=== PATIENT | male | born 1955 | race Caucasian/White ===

== ENCOUNTER → 2017-11-09 09:34 | Outpatient (CLI) | payer BC, SELFPAY ==
[2017-11-09 11:06] LABS: AST(SGOT) 21 U/L (15-37); Alanine Aminotransfer ALT/SGPT 23 U/L (16-61); Albumin, Serum 3.7 g/dL (3.2-5.0); Alkaline Phosphatase 99 U/L (45-117); Cholesterol 112 mg/dL (200); High Density Lipoprotein 51 mg/dL; Protein, Total 7.7 g/dL (6.4-8.2); Triglycerides 62 mg/dL; Very Low Density Lipoprotein 12 mg/dL (5-40)
== END ==
PROVIDERS: Family Provider Family Medicine; PCP Family Medicine; Visit Provider Internal Medicine Cardiovascular Disease
DX: I21.4 Non-ST elevation (NSTEMI) myocardial infarction (principal); E78.00 Pure hypercholesterolemia, unspecified
CPT/HCPCS: 36415; 80061; 80076

== ENCOUNTER → 2018-05-07 07:54 | Outpatient (CLI) | payer OTHER, SELFPAY ==
[2018-05-07 08:55] LABS: AST(SGOT) 25 U/L (15-37); Alanine Aminotransfer ALT/SGPT 27 U/L (16-61); Albumin, Serum 3.6 g/dL (3.2-5.0); Alkaline Phosphatase 117 U/L (45-117); Bilirubin, Direct 0.21 mg/dL (0.00-0.30); Cholesterol 104 mg/dL (200); Globulin 3.9 g/dL (2.2-4.2); High Density Lipoprotein 48 mg/dL; Protein, Total 7.5 g/dL (6.4-8.2); Triglycerides 55 mg/dL; Very Low Density Lipoprotein 11 mg/dL (5-40)
== END ==
PROVIDERS: Family Provider Family Medicine; PCP Family Medicine; Visit Provider Internal Medicine Cardiovascular Disease
DX: I25.10 Atherosclerotic heart disease of native coronary artery without angina pectoris (principal); Z79.899 Other long term (current) drug therapy; Z95.5 Presence of coronary angioplasty implant and graft
CPT/HCPCS: 36415; 80061; 80076

== ENCOUNTER → 2019-10-24 08:24 | Outpatient (CLI) | payer BC, SELFPAY ==
[2018-11-04 10:32] VITALS: BMI 27.3
[2019-10-24 09:34] LABS: AST(SGOT) 24 U/L (15-37); Alanine Aminotransfer ALT/SGPT 30 U/L (16-61); Albumin, Serum 3.7 g/dL (3.2-5.0); Alkaline Phosphatase 83 U/L (45-117); Bilirubin, Direct 0.18 mg/dL (0.00-0.30); Cholesterol 116 mg/dL (200); Globulin 3.9 g/dL (2.2-4.2); High Density Lipoprotein 53 mg/dL; Protein, Total 7.6 g/dL (6.4-8.2); Triglycerides 57 mg/dL; Very Low Density Lipoprotein 11 mg/dL (5-40)
== END ==
PROVIDERS: PCP Family Medicine; Referring Provider Internal Medicine Cardiovascular Disease; Visit Provider Internal Medicine Cardiovascular Disease
DX: E78.00 Pure hypercholesterolemia, unspecified (principal); E78.5 Hyperlipidemia, unspecified; I25.2 Old myocardial infarction; I25.10 Atherosclerotic heart disease of native coronary artery without angina pectoris; Z95.5 Presence of coronary angioplasty implant and graft; F17.200 Nicotine dependence, unspecified, uncomplicated
CPT/HCPCS: 36415; 80061; 80076

== ENCOUNTER → 2019-11-15 06:42 | Outpatient (CLI) | payer BC, SELFPAY ==
[2019-11-03 08:52] VITALS: BMI 26.9
--- NOTE | 2019-11-15 16:05 | STRESSREP ---
Stress Test Report Exercise myocardial perfusion stress test. 64-year-old man with a history of previous non-ST elevation myocardial infarction involving the inferior wall. Stress protocol: Resting EKG demonstrates normal sinus rhythm with a rate of 60 bpm normal intervals are noted resting blood pressures 138/66 mmHg. The patient exercised according to regular Aguilar protocol for a total duration of 9 minutes and 31 seconds. The maximum heart rate attained was 133 bpm which was 85% of maximum predicted heart rate the maximum workload was 10.9 metabolic equivalents. At rest there were no ST or T wave changes noted suggest ischemia peak exercise upsloping ST changes only were noted with no meet the criteria for ischemia. The test was terminated due to leg fatigue. The resting blood pressure is 138/66 with a peak blood pressure 168/70 mmHg. Myocardial perfusion protocol. 14.1 mCi of technetium 99m sestamibi was injected at rest. The patient exercised according to regular Aguilar protocol. At peak exercise 44.3 mCi of technetium 99m sestamibi was injected stress images were obtained stress and rest images were reconstructed and compared in the short axis vertical and horizontal long axis. Gated images were also obtained Perfusion SPECT analysis: Review of the stress images demonstrate normal uptake of tracer noted in the septum anterior wall and lateral wall. There is a small to medium portion of the inferior wall in the mid zone with reduced perfusion. The resting images demonstrate improved perfusion suggestive of mid inferior ischemia. Gated SPECT analysis: The gated ejection fraction is noted to be 70%. Conclusion: Abnormal exercise myocardial perfusion stress test at a high workload with mid inferior ischemia. Preserved ejection fraction.
== END ==
PROVIDERS: PCP Family Medicine; Referring Provider Internal Medicine Cardiovascular Disease; Visit Provider Internal Medicine Cardiovascular Disease
DX: I25.10 Atherosclerotic heart disease of native coronary artery without angina pectoris (principal)
CPT/HCPCS: 78452; 93017; A9500; A4216

== ENCOUNTER → 2020-04-10 12:10 | Outpatient (CLI) | payer MEDICARE, SELFPAY ==
[2020-04-10 09:49] VITALS: BMI 26.9
--- NOTE | 2020-04-10 12:16 | RAD_ITS ---
STUDY: X-RAY CHEST REASON FOR EXAM: Male, 64 years old. ABNORMAL STRESS TEST, NO HEART COMPLAINTS, HX STENTS X 3 YRS TECHNIQUE: PA and lateral views of the chest. COMPARISON: Comparison is made with prior study dated 03/06/2017. FINDINGS: Hyperinflation. There is no demonstrated pleural abnormality. Stable scarring at the lung apices. Normal mediastinum and tara. There is prominence of the pulmonary hilar arteries without peripheral pulmonary vascular congestion, suggesting pulmonary hypertension. Normal visualized aortic arch and descending thoracic aorta. There are degenerative changes of the visualized thoracic spine. Normal visualized ribs, clavicles, and shoulders. There is no demonstrated abnormality of the visualized soft tissue structures of the upper abdomen. RAD/Chest PA and Lateral IMPRESSION: Hyperinflation. Stable examination. Electronically Signed: Coy Man, at 12:46 EDT , Service support ,
[2020-04-10 13:08] LABS: Absolute Lymphocyte Count 1.87 X10^3/uL (0.83-4.51); Absolute Neutrophil Count 5.9 X10^3/uL (2.0-7.7); Basophil# 0.02 X10^3/uL; Basophil% 0.2 % (0-1); Eosinophil# 0.07 X10^3/uL; Eosinophils% 0.8 % (0-5); Hematocrit 44.4 % (40-54); Hemoglobin 15.1 g/dL (13.0-16.5); Lymphocyte # 1.87 X10^3/ul (4.0); Lymphocyte % 21.9 % (19-41); Mean Corpuscular Hgb 33.6 pg (27.0-32.0); Mean Corpuscular Volume 98.9 fL (80-94); Mean Platelet Vol. 10.4 fl (6.2-12.0); Monocyte# 0.61 X10^3/uL; Monocyte% 7.1 % (0-10); NRBC Flagged by Analyzer 0 % (0-5); Neutrophil # 5.93 X10^3/uL (2.7-7.7); Neutrophil % 69.5 % (47-70); Platelet Count 266 K/mm3 (150-450); RBC Distribution Width CV 11.7 % (11.6-14.6); RBC Distribution Width SD 42.6 fl (35.1-43.9); Red Blood Count 4.49 M/mm3 (4.6-6.2); White Blood Count 8.5 K/mm3 (4.4-11.0)
[2020-04-10 13:27] LABS: Anion Gap 3 (5-15); BUN 15 mg/dL (7-18); BUN/Creat Ratio 23.9 RATIO (10-20); Calcium,Total 8.6 mg/dL (8.5-10.1); Chloride 109 mmol/L (98-107); Creatinine, Serum 0.63 mg/dL (0.70-1.30); EST Glomerular Filtration Rate 136 mL/min (>60); Est Glom Filt Rate - Afr Amer 165 mL/min (>60); Glucose 87 mg/dL (74-106); Potassium 3.9 mmol/L (3.5-5.1); Sodium Level 140 mmol/L (136-145)
[2020-04-10 13:36] LABS: AST(SGOT) 23 U/L (15-37); Alanine Aminotransfer ALT/SGPT 24 U/L (16-61); Albumin, Serum 3.7 g/dL (3.2-5.0); Alkaline Phosphatase 89 U/L (45-117); Globulin 3.7 g/dL (2.2-4.2); Protein, Total 7.4 g/dL (6.4-8.2)
[2020-04-11 14:06] LABS: Cholesterol 111 mg/dL (200); High Density Lipoprotein 45 mg/dL; Triglycerides 75 mg/dL; Very Low Density Lipoprotein 15 mg/dL (5-40)
== END ==
PROVIDERS: Physician Assistant Medical; PCP Family Medicine; Referring Provider Internal Medicine Cardiovascular Disease; Visit Provider Internal Medicine Cardiovascular Disease
DX: I25.10 Atherosclerotic heart disease of native coronary artery without angina pectoris (principal); Z95.5 Presence of coronary angioplasty implant and graft; E78.00 Pure hypercholesterolemia, unspecified; E78.5 Hyperlipidemia, unspecified
CPT/HCPCS: 36415; 71046; 80048; 80061; 80076; 85025

== ENCOUNTER 2020-04-16 07:51 | Day surgery (SDC) | payer MEDICARE, SELFPAY ==
--- NOTE | 2020-04-10 01:02 | HP_ITS ---
HPI HPI History of Present Illness Surgical H&P: Yes Details: JACKELYN NOGUERA, is a 64 M who presents to the office today for a cardiovascular outpatient follow-up. He has a history of non-ST elevated myocardial infarction for which he received a drug-eluting stent to proximal?mid RCA in February 2017. He also has a history of hyperlipidemia and tobacco abuse. He denies chest, arm, jaw, or neck discomfort. His exercise tolerance is reduced d/t ankle pain. He denies symptoms of CHF, palpitations, lightheadedness, dizziness, near syncope, or syncopal episodes. He denies edema or claudication issues. He denies orthopnea, PND, myalgia, or unexplainable fatigue. Intake Vital Signs 04/10/20 BMI 26.9 Intake Visit Reasons: H&P for LHC /LM Allergies No Known Allergies Allergy (Verified 11/03/19 08:53) [facility] Medical History (Updated 04/10/20 @ 09:49 by Alexis Thomas, KILN PLACER-C) Atherosclerosis of coronary artery of [place] heart without angina pectoris (Chronic) Old inferior wall myocardial infarction (Chronic) History of non-ST elevation myocardial infarction (NSTEMI) (Resolved 03/06/17) Hyperlipidemia (Chronic) Nicotine dependence (Chronic) BPH (benign prostatic hyperplasia) (Chronic) COPD (chronic obstructive pulmonary disease) (Chronic) Surgical History History of coronary artery stent placement (Chronic 03/06/17) History of left inguinal hernia repair (Chronic) Social History (Updated 04/10/20 @ 13:02 by Alexis Thomas NP-C) Smoking Status: Current every day smoker alcohol intake: current alcohol intake frequency: a few times a month caffeine: Yes Type: carbonated beverages Number of servings: 1, coffee Number of servings: 1 ROS Const Const: Negative for fatigue, weakness, body ache, fever(s) or chills ENT ENT: Negative for dizziness Cardio Chest Pain: No Palpitations: No Edema: None Muscle aches with walking: None Resp Respiratory: Negative for SOB with activity, SOB at rest, SOB orthopnea\SOB lying down or paroxysmal nocturnal dyspnea GI GI: Negative nausea, vomiting blood/hematemesis, bright, red blood in stools or black,tarry stools : Negative for hematuria or frequent nighttime urination/ nocturia Musc Musc: Negative for muscle aches/ myalgia Skin Skin: Negative non-healing lesions or rash Neuro Neuro: Negative for dizziness, lightheadedness, near syncope, syncope, orthostatic symptoms or weakness Endo Endo: Negative for fatigue Allergy Allergy/Immunology: Negative for rash Cardiology Exam Const Appearance: cooperative, healthy appearing, comfortable and no acute distress Nutritional Appearance: well nourished and overweight Orientation: alert, awake and oriented x3 Head Head: normal to inspection Ears: hearing grossly normal bilaterally Nose: external nose normal Face and Sinus: face symmetric Mouth: oral mucosae normal Eyes General: appearance normal, both eyes and all related structures Eyelids: eyelids normal EOM: EOM intact bilaterally Neck Neck: normal visual inspection and no JVD Carotids: normal carotid upstroke Chest Chest inspection: normal inspection of the chest, symmetric chest movement and normal respiratory effort; negative cough Auscultation: Bilateral: Clear to Auscultation Cardio Palpation: normal PMI Rate: regular rate Rhythm: regular rhythm Heart sounds: S1 normal and S2 normal; negative rub, gallop or murmur GI GI: normal to inspection Neuro General: alert, awake, oriented x3 and CN's II-XI intact bilaterally Skin Skin: no rashes or lesions noted Extremities Pulses: Normal: Right Posterior Tibial Pulse, Left Posterior Tibial Pulse, Right Radial Pulse, Left Radial Pulse Lower Extremity Edema: None: Bilateral Psych Psychological: normal affect Assessment & Plan 1. Atherosclerosis of [place] coronary artery of [place] heart without angina pectoris I25.10 BHARTI-RCA 3.0 x 38 mm Synergy MR 03/06/2017 60-70% Mid LAD 60% Ostial D1 Plan Patient underwent stress test after last office appointment in October 2019. This was considered to be abnormal at a high workload with mid inferior ischemia. His ejection fraction was preserved. It was recommended that he undergo heart catheterization. His heart catheterization was postponed due to change in insurance. Patient denies any chest pain, arm pain, jaw pain, neck pain, shortness of breath, or fatigue suggestive of angina at this time. He will proceed with heart catheterization. Based on results, further recommendation of be made. Orders Orders: 12 Lead EKG performed by [facility] Today 2. History of coronary artery stent placement Z95.5 BHARTI-RCA 3.0 x 38 mm Synergy MR 03/06/2017 Plan He will continue current medical therapy which includes aspirin, atorvastatin, Plavix, and metoprolol. Orders Orders: 12 Lead EKG performed by [facility] Today 3. Pure hypercholesterolemia E78.00 Plan Lipid panel from 10/24/2019 showed cholesterol: 116, HDL: 53, LDL: 52, and triglycerides: 57. He will continue current high-dose statin medication. 4. Cigarette nicotine dependence without complication F17.210 Plan Patient continues to smoke. He received extensive education regarding the health benefits of smoking cessation. He acknowledged understanding. We will continue to support and encourage smoking cessation. Plan Detail Other Medications Refilled: clopidogrel 75 mg PO DAILY 90 tabs 3RF Additional Comments Thank you for allowing us to participate in the patients plan of care, if you have any questions please do not hesitate to call. This note was generated using a voice recognition system and there may be incorrect words, spelling or punctuation that were not noted when reviewing the office note prior to saving. Coding Level of Care Code Off vis,est,level 3 Diagnoses Atherosclerosis of [place] coronary artery of [place] heart without angina pectoris I25.10 ??Coronary Disease-Associated Artery/Lesion type: [place] artery History of coronary artery stent placement Z95.5 Pure hypercholesterolemia E78.00 ??Hyperlipidemia type: pure hypercholesterolemia Cigarette nicotine dependence without complication F17.210 ??Nicotine product type: cigarettes ??Substance use status: uncomplicated Coding Level of Care Code Off vis,est,level 3 Diagnoses Atherosclerosis of [place] coronary artery of [place] heart without angina pectoris I25.10 ??Coronary Disease-Associated Artery/Lesion type: [place] artery History of coronary artery stent placement Z95.5 Pure hypercholesterolemia E78.00 ??Hyperlipidemia type: pure hypercholesterolemia Cigarette nicotine dependence without complication F17.210 ??Nicotine product type: cigarettes ??Substance use status: uncomplicated Supplemental Info Supplemental Information Heart catheterization from 03/06/2017: Showed severe disease noted in the mid right coronary artery and moderate disease of the proximal right coronary artery. Moderate disease noted in the mid left anterior descending artery. He underwent successful PTCA/BHARTI of the proximal?mid RCA. Echocardiogram from 03/07/2017: Interpretation summary Normal LV size. Left ventricular systolic function is lower limits of normal. The estimate ejection fraction is 50%. Mid posterior: Mildly hypokinetic Structurally normal valves. Stress test from 11/15/2019: Conclusion: Abnormal exercise myocardial perfusion stress test at a high workload with mid inferior ischemia. Preserved ejection fraction. Labs LDL Cholesterol 52 mg/dL (0-130) 10/24/19 HDL Cholesterol 53 mg/dL (40-) 10/24/19 Triglycerides 57 mg/dL (-199) 10/24/19 VLDL Cholesterol 11 mg/dL (5-40) 10/24/19 Diagnostics Electrocardiogram 04/10/20 Stress Test 11/15/19 Chest X-Ray 04/10/20 04/10/20 1302 <Electronically signed by Alexis Robert> Date _ Alexis Thomas KILN PLACERKiraC
[2020-04-10 09:49] VITALS: BMI 26.9
[2020-04-16 07:57] VITALS: BMI 32.0
--- NOTE | 2020-04-16 10:24 | CL.D_ITS ---
Patient Name: JACKELYN NOGUERA Study Date: 04/16/2020 Performing: Cecilio Nair MD Ht: 68.89 inches 175 cm : 1955 Wt: 216.05 lbs 98 kg Age: 64 Gender: male BSA: 2.13 PROCEDURE(S) PERFORMED [id number] CLINICAL PROFILE AND INDICATIONS Indications: Worsening Angina Heart Failure: None Stress/Imaging Date: 11/15/2019Stress Test with SPECT MPI: Positive Intermediate Risk CONCLUSIONS Moderate to moderately severe disease noted in the mid left anterior descending artery. Previously s tented right coronary artery is patent RECOMMENDATIONS Staged for FFR DESCRIPTION OF PROCEDURE The patient arrived to the procedure lab. The risks and benefits of the procedure as well as a full d escription of our services here and current unavailability of surgical backup were fully explained to the patient and/or their significant other prior to the catheterization. The Timeout was completed, verifying the correct patient and procedure. The patient's procedural site was prepped and draped in the usual fashion. Local anesthetic was given subcutaneously to right radial region with Lidocaine 2% . Using a modified Seldinger technique, arterial access was obtained via the right radial artery, a 6 Fr sheath was inserted. Left Coronary Artery selective angiography was performed in multiple views u sing a 5 Fr. 4.0 [place] catheter. Right Coronary Artery selective angiography was then performed in mu ltiple views using a 5 Fr. 4.0 [place] catheter. Left Ventriculography was performed in PATEL projection using a 5 Fr. Pigtail catheter. LV to AO pullback pressures were then recorded. CORONARY ANGIOGRAPHY DOMINANCE: Right Dominant LEFT HEART ASSESSMENT Left Ventricular Ejection Fraction: by LV Gram 65 % Normal LV wall motion Normal Left Ventricular systolic function LEFT MAIN: Mild calcification, No significant disease noted LEFT ANTERIOR DESCENDING ARTERY: MID LAD: Diffusely diseased up to 65 % CIRCUMFLEX ARTERY: Mild luminal irregularities RIGHT CORONARY ARTERY: Previously placed stent is patent COMPLICATIONS PROCEDURE MEDICATIONS Fentanyl 50 mcg IV Versed 1 mg IV Oxygen: 2 L/min via nasal cannula Heparin diluted in 23cc Heparinized saline. Patient given 10cc IA of this solution. 04/16/2020 10:00: 55 Heparin 6000 unit(s) IV 04/16/2020 10:18:51 SUMMARY OF HEMODYNAMIC DATA Time AIR REST ECG 08:15:16 AO 95/55 (71) SA 10:03:03 LV 79/1, 0 10:08:10 LV 90/1, 4 10:08:16 LV 70/2, 6 10:09:05 LVp 71/2, 5 10:09:10 AOp 86/45 (63) 10:09:15 AOp 94/53 (69) 10:09:36 AO 120/61 (82) 10:20:22 Signed By Cecilio Nair MD On 04/16/2020 10:24:10 Cecilio Nair MD
--- NOTE | 2020-04-16 10:47 | CL.I_ITS ---
Patient Name: JACKELYN NOGUERA Study Date: 04/16/2020 Performing: Trevor Robertson MD Ht: 68.89 inches 175 cm : 1955 Wt: 216.05 lbs 98 kg Age: 64 Gender: male BSA: 2.13 PROCEDURE(S) PERFORMED [id number], CORONARY OR GRAFT, INITIAL VESSEL CLINICAL PROFILE AND CO-MORBIDITIES Indications: Worsening Angina Heart Failure: None Stress/Imaging Date: 11/15/2019 Stress Test with SPECT MPI: Positive Intermediate Risk CONCLUSIONS FFR in the LAD is 0.83 which is consistent with stenosis that can be treated medically at this time. RECOMMENDATIONS DESCRIPTION OF PROCEDURE The patient arrived to the procedure lab. The risks and benefits of the procedure as well as a full d escription of our services here and current unavailability of surgical backup were fully explained to the patient and/or their significant other prior to the catheterization. The Timeout was completed, verifying the correct patient and procedure. The patient's procedural site was prepped and draped in the usual fashion. Local anesthetic was given subcutaneously to right radial region with Lidocaine 2% Using a modified Seldinger technique,arterial access was obtained via the right radial artery, a 6Fr sheath was inserted. Left Coronary Artery selective angiography was performed in multiple views usin g a 5 Fr. 4.0 [place] catheter. Right Coronary Artery selective angiography was then performed in multi ple views using a 5 Fr. 4.0 [place] catheter. Left Ventriculography was performed in PATEL projection usi ng a 5 Fr. Pigtail catheter. LV to AO pullback pressures were then recorded.The images were reviewed and options discussed. A decision was then made to proceed with an Intervention, IVUS o r other adjunct procedure. XB 3.0 Guide catheter was inserted and engaged into the LCA. The FFR/iFR wire was inserted. Adeno sine was then given per protocol. Pressures and FFR/iFR were then recorded. FFR Ratio Baseline: 0.97 FFR Ratio post Adenosine: 0.83 The FFR/iFR wire was then removed. The arterial sheath was pulled an d a TR Band was applied for hemostasis INTERVENTION INFORMATION LESION SITE: LAD (Mid) COMPLICATIONS No Complications PROCEDURE MEDICATIONS Fentanyl 50 mcg IV Versed 1 mg IV Oxygen: 2 L/min via nasal cannula Adenosine drip for FFR 27 ml IV @ 04/16/2020 10:27:37 Heparin diluted in 23cc Heparinized saline. Patient given 10cc IA of this solution. 04/16/2020 10:00: 55 Heparin 6000 unit(s) IV 04/16/2020 10:18:51 SUMMARY OF HEMODYNAMIC DATA Time AIR REST ECG 08:15:16 AO 95/55 (71) SA 10:03:03 LV 79/1, 0 10:08:10 LV 90/1, 4 10:08:16 LV 70/2, 6 10:09:05 LVp 71/2, 5 10:09:10 AOp 86/45 (63) 10:09:15 AOp 94/53 (69) 10:09:36 AO 120/61 (82) 10:20:22 RM AIR REST 10:24:27 Signed By Trevor Robertson MD On 04/16/2020 10:46:17 Trevor Robertson MD
== END 2020-04-16 13:25 | disposition home or self-care (01) ==
LOC: CLSP 07:52
PROVIDERS: PCP Family Medicine; Referring Provider Internal Medicine Cardiovascular Disease; Visit Provider Internal Medicine Cardiovascular Disease
DX: I25.10 Atherosclerotic heart disease of native coronary artery without angina pectoris (principal); E78.00 Pure hypercholesterolemia, unspecified; N40.0 Benign prostatic hyperplasia without lower urinary tract symptoms; J44.9 Chronic obstructive pulmonary disease, unspecified; I25.2 Old myocardial infarction; Z95.5 Presence of coronary angioplasty implant and graft; Z79.82 Long term (current) use of aspirin; Z79.02 Long term (current) use of antithrombotics/antiplatelets; Z79.899 Other long term (current) drug therapy; F17.210 Nicotine dependence, cigarettes, uncomplicated
CPT/HCPCS: 93458; 93571; 99152; 99153; J0153; J7040; J7050; C1769; C1887; C1894; Q9967

== ENCOUNTER → 2023-03-12 | Outpatient (CLI) | payer MEDICARE, SELFPAY ==
[2023-03-12 16:09] LABS: Absolute Lymphocyte Count 1.87 X10^3/uL (0.83-4.51); Absolute Neutrophil Count 5.6 X10^3/uL (2.0-7.7); Basophil# 0.04 X10^3/uL; Basophil% 0.5 % (0-1); Eosinophil# 0.13 X10^3/uL; Eosinophils% 1.6 % (0-5); Hematocrit 44.2 % (40-54); Hemoglobin 14.9 g/dL (13.0-16.5); Lymphocyte # 1.87 X10^3/ul (0.83-4.51); Lymphocyte % 22.9 % (19-41); Mean Corp Hgb Conc 33.7 g/dL (32-36); Mean Corpuscular Hgb 33.7 pg (27.0-32.0); Mean Platelet Vol. 10.1 fl (6.2-12.0); Monocyte% 6.1 % (0-10); NRBC Flagged by Analyzer 0 % (0-5); Neutrophil # 5.61 X10^3/uL (2.7-7.7); Neutrophil % 68.8 % (47-70); Platelet Count 302 K/mm3 (150-450); RBC Distribution Width CV 11.9 % (11.6-14.6); RBC Distribution Width SD 43.8 fl (35.1-43.9); Red Blood Count 4.42 M/mm3 (4.6-6.2); White Blood Count 8.2 K/mm3 (4.4-11.0)
[2023-03-12 16:40] LABS: Vitamin D,25 Hydroxy 55.3 ng/mL
[2023-03-12 16:48] LABS: Anion Gap 7 (5-15); BUN 25 mg/dL (7-18); Calcium,Total 8.6 mg/dL (8.5-10.1); Chloride 107 mmol/L (98-107); Creatinine, Serum 0.96 mg/dL (0.70-1.30); EST Glomerular Filtration Rate 83 mL/min (>60); Est Glom Filt Rate - Afr Amer 100 mL/min (>60); Glucose 103 mg/dL (74-106); Potassium 4.1 mmol/L (3.5-5.1); Sodium Level 139 mmol/L (136-145); Thyroid Stim Hormone (TSH) 0.78 uIU/mL (0.358-3.74)
== END | disposition home or self-care (01) ==
LOC: LAB 15:32
PROVIDERS: PCP Family Medicine; Referring Provider Nurse Practitioner Gerontology; Visit Provider Nurse Practitioner Gerontology
DX: E55.9 Vitamin D deficiency, unspecified (principal); R53.83 Other fatigue
CPT/HCPCS: 36415; 80048; 82306; 84443; 85025

== ENCOUNTER → 2023-04-06 | Outpatient (CLI) | payer MEDICARE, SELFPAY ==
--- NOTE | 2023-04-06 08:45 | STRESSREP ---
Stress Test Report Pharmacologic myocardial perfusion stress test. 67-year-old man with a history of chest pain Resting EKG demonstrates sinus bradycardia with a rate of 49 bpm. Resting blood pressure is 09/21/1969 mmHg. 0.4 mg of regadenoson was infused per usual protocol followed by rapid intravenous saline flush injection. Continuous EKG monitoring was performed. The maximum heart rate was 78 bpm which was 50% of max impacted heart rate the maximum workload was 1 metabolic equivalent. At rest there were no ST or T wave changes noted to suggest ischemia and at peak infusion nonspecific ST changes were noted which did not meet the criteria for ischemia. No clinical angina is noted. The final blood pressure was 132/64 mmHg. Myocardial perfusion protocol. 14.4 mCi of technetium 99m sestamibi was injected at rest. 0.4 mg of regadenoson was infused per usual protocol. At peak infusion 44.1 mCi of technetium 99m sestamibi was injected stress images were obtained stress and rest images were reconstructed and compared in the short axis vertical long and horizontal long axis. Gated images were also obtained. Perfusion SPECT analysis: Review of the stress images demonstrate normal uptake of tracer noted in all areas of the myocardium. The resting images similar demonstrated normal uptake of tracer noted in all areas of the myocardium. No areas of reversibility are noted to suggest ischemia and no previous infarct is noted. Gated SPECT analysis: The gated ejection fraction is 71%. Conclusion: Normal pharmacologic myocardial perfusion stress test. Preserved ejection fraction.
== END | disposition home or self-care (01) ==
PROVIDERS: PCP Family Medicine; Referring Provider Nurse Practitioner Gerontology; Visit Provider Nurse Practitioner Gerontology
DX: R53.83 Other fatigue (principal); I25.10 Atherosclerotic heart disease of native coronary artery without angina pectoris; Z95.5 Presence of coronary angioplasty implant and graft
CPT/HCPCS: 78452; 93017; A9500; A4216; J2785